=== PATIENT | male | born 1975 | race Caucasian/White ===

== ENCOUNTER 2019-10-25 20:32 | Emergency (ER) | payer SELFPAY | END 2019-10-25 21:20 | disposition home or self-care (01) | LOC: SED 20:32 | DX: M54.9 Dorsalgia, unspecified (principal); Z53.21 Procedure and treatment not carried out due to patient leaving prior to being seen by health care provider ==

== ENCOUNTER 2023-12-10 06:25 | Day surgery (SDC) | payer OTHER ==
[~2023-12-10] VITALS: Ht 177.8 cm; Wt 113.4 kg
[2023-12-10] MEDS ORDERED: MEPERIDINE 100 MG INJ. 100 MG/ML VIAL ONE (07:27)
[2023-12-10] MEDS ORDERED: MIDAZOLAM HCL 5 MG/5 ML VIAL ONE ×2 (07:27→09:09)
[2023-12-10] MEDS ORDERED: SIMETHICONE 40 MG/0.6 ML ML ONE (07:27)
[2023-12-10] MEDS ORDERED: DIPHENHYDRAMINE INJ 50 MG/ML VIAL ONE (09:04)
[2023-12-10 11:31] VITALS: O2SAT 98
[2023-12-10 13:56] VITALS: BP_SYST 124; PULSE 84; RESP 16
== END 2023-12-10 10:03 | disposition home or self-care (01) ==
LOC: SGI 06:25 → SMU 06:26 → SGI 10:03
PROVIDERS: ATTEND Internal Medicine Gastroenterology
DX: Z12.11 Encounter for screening for malignant neoplasm of colon (principal); K63.5 Polyp of colon; K29.50 Unspecified chronic gastritis without bleeding; K21.9 Gastro-esophageal reflux disease without esophagitis; K29.80 Duodenitis without bleeding; K44.9 Diaphragmatic hernia without obstruction or gangrene; K57.30 Diverticulosis of large intestine without perforation or abscess without bleeding; K64.8 Other hemorrhoids; I10 Essential (primary) hypertension; E78.5 Hyperlipidemia, unspecified; Z98.1 Arthrodesis status; Z79.899 Other long term (current) drug therapy
CPT/HCPCS: 43239; 45385; 88305; 88312; 88313; 99152; 99153; G0378; J1200; J2250; J2175